=== PATIENT | female | born 1965 | race Caucasian/White ===

== ENCOUNTER 2022-10-05 06:23 | Inpatient (IN) | payer MEDICAID ==
[2022-10-03 14:27] LABS: Basophils # (auto) 0.1 10 ^3/uL (0-0.2); Basophils % (auto) 0.9 % (0.0-2.0); Eosinophils # (auto) 0.3 10 ^3/uL (0-0.8); Eosinophils % (auto) 3.2 % (0.0-7.0); Hematocrit 45.4 % (36.0-46.0); Hemoglobin 15.2 g/dL (12.2-16.2); Lymphocytes # (auto) 3.4 10 ^3/uL (0.4-5.4); Lymphocytes % (auto) 34.3 % (10.0-50.0); Mean Corpuscular Hemoglobin 30.7 pg (28.0-32.0); Mean Corpuscular Hgb Conc. 33.4 g/dL (32.0-36.0); Mean Corpuscular Volume 91.7 fL (80.0-100.0); Monocytes # (auto) 0.7 10 ^3/uL (0-1.3); Monocytes % (auto) 7.5 % (0.0-12.0); Neutrophils # (auto) 5.3 10 ^3/uL (1.6-8.6); Neutrophils % (auto) 54.1 % (37.0-80.0); Nucleated Red Blood Cells % 0.1 %; Red Blood Cells 4.95 10^6/uL (4.0-5.20); Red Cell Distribution Width 13.4 % (11.8-14.3); White Blood Cell 9.8 10^3/uL (4.4-10.8)
[2022-10-03 14:34] LABS: Urine Bacteria NONE SEEN /hpf (None Seen); Urine Blood Negative /uL (Negative); Urine Mucus FEW (None Seen); Urine Specific Gravity 1.018 (1.001-1.035); Urine WBC 2 /hpf (0 - 5)
[2022-10-03 14:45] LABS: INR 0.95 (0.9-1.15); Partial Thromboplastin Time 28.3 sec (24.6-33.4)
[2022-10-03 15:02] LABS: Albumin 3.9 g/dL (3.4-5.0); Calcium 8.5 mg/dL (8.5-10.1); Potassium 4.3 mmol/L (3.5-5.1)
[2022-10-03 15:05] LABS: Bilirubin, Total 0.4 mg/dL (0.2-1.0); Total Protein 7.1 g/dL (6.4-8.2)
[~2022-10-05] VITALS: Ht 175.3 cm; Wt 118.0 kg
[~2022-10-05 06:23] MED LIST: ASCO500T11 PO; CALC1TAB92 PO; CARB25TA79 PO; CITA10TA8 PO; FURO20TA3 PO; GABA-339 PO; LISI20TA56 PO; ROPI2TAB6 PO
[2022-10-05] MEDS ORDERED: ceFAZolin 1GM/50ML 100 ML IV ONE (06:38)
[2022-10-05] MEDS ORDERED: EPINEPHrine HCL 1 MG/1 ML AMP ONE (06:55)
[2022-10-05] MEDS ORDERED: DexAMETHasone SOD PHOS 4 MG/1ML SDV INJ ONE (06:55)
[2022-10-05] MEDS ORDERED: BUPIVACAINE 0.25% INJ 50ML VIAL ONE (06:55)
[2022-10-05] MEDS ORDERED: ONDANSETRON HCL 4 MG/2 ML VIAL ONE (06:56)
[2022-10-05] MEDS ORDERED: LIDOCAINE 2% (LOCAL ANESTH.) PF 5ml SDV ONE (06:56)
[2022-10-05] MEDS ORDERED: KETOROLAC TROMETH 30 MG/ML 1ML VIAL ONE (06:56)
[2022-10-05] MEDS ORDERED: PROPOFOL 10 MG/ML 20 ML IV ONE ×6 (06:56→09:20)
[2022-10-05] MEDS ORDERED: DexAMETHasone SOD PHOS 10MG/1ML VIAL INJ ONE (06:56)
[2022-10-05] MEDS ORDERED: GLYCOPYRROLATE 0.2 MG/ML 1ML VIAL ONE (06:56)
[2022-10-05] MEDS ORDERED: LIDOCAINE 1% HCL (LOCAL ANESTH.) INJ 20ML MDV ONE (07:24)
[2022-10-05] MEDS ORDERED: BUPIVACAINE HCL 50 ML ONE (07:24)
[2022-10-05] MEDS ORDERED: ESMOLOL HCL 10 ML IV ONE (09:06)
[2022-10-05] MEDS ORDERED: HYDR-4902 PO (09:47)
[2022-10-05] MEDS ORDERED: AUG875T PO (09:47)
[2022-10-05] MEDS ORDERED: MORPHINE SULFATE INJ 2 MG/ml SYRG IV PRN (10:30)
[2022-10-05] MEDS ORDERED: NITROGLYCERIN 0.4 MG SL TAB SL PRN (10:30)
[2022-10-05] MEDS ORDERED: HYDROcodone-ACET 5/325MG TAB PO PRN (11:30)
[2022-10-05 16:12] VITALS: BP 128/69
[2022-10-05] MEDS: ceFAZolin 2 GM/D5W100ml 100 ML IV SCH ×2 (17:12→22:49)
[2022-10-05 22:00] VITALS: BP 117/66
[2022-10-05] MEDS: GABAPENTIN 300 MG CAP PO SCH (22:48)
[2022-10-05] MEDS: CARBIDOPA W LEVODOPA 25/100mg TABLET PO SCH (22:49)
[2022-10-06] MEDS: CARBIDOPA W LEVODOPA 25/100mg TABLET PO SCH (05:47)
[2022-10-06] MEDS: ceFAZolin 2 GM/D5W100ml 100 ML IV SCH (05:47)
[2022-10-06] MEDS: GABAPENTIN 300 MG CAP PO SCH (05:48)
[2022-10-06 06:49] LABS: Basophils # (auto) 0.1 10 ^3/uL (0-0.2); Basophils % (auto) 0.5 % (0.0-2.0); Eosinophils # (auto) 0 10 ^3/uL (0-0.8); Eosinophils % (auto) 0.2 % (0.0-7.0); Hematocrit 38.8 % (36.0-46.0); Hemoglobin 12.7 g/dL (12.2-16.2); Lymphocytes # (auto) 1.8 10 ^3/uL (0.4-5.4); Lymphocytes % (auto) 17.2 % (10.0-50.0); Mean Corpuscular Hemoglobin 30.9 pg (28.0-32.0); Mean Corpuscular Hgb Conc. 32.7 g/dL (32.0-36.0); Mean Corpuscular Volume 94.3 fL (80.0-100.0); Monocytes # (auto) 0.6 10 ^3/uL (0-1.3); Monocytes % (auto) 5.3 % (0.0-12.0); Neutrophils # (auto) 8.2 10 ^3/uL (1.6-8.6); Neutrophils % (auto) 76.8 % (37.0-80.0); Red Blood Cells 4.12 10^6/uL (4.0-5.20); Red Cell Distribution Width 13.6 % (11.8-14.3); White Blood Cell 10.7 10^3/uL (4.4-10.8)
[2022-10-06 09:00] VITALS: BP 127/66
[2022-10-06] MEDS ORDERED: LISINOPRIL 10 MG TAB PO SCH (10:00)
[2022-10-06] MEDS ORDERED: CITALOPRAM HYDROBR 20 MG TAB PO SCH (10:00)
[2022-10-06 12:03] LABS: BUN/Creatinine Ratio 25.5 (10.0-20.0); Calcium 8.5 mg/dL (8.5-10.1); Potassium 4.2 mmol/L (3.5-5.1)
[2022-10-06 12:46] VITALS: BP 132/72
[2022-10-06 15:19] VITALS: BP 127/66
== END 2022-10-06 16:00 | disposition home or self-care (01) | DRG 317 ==
LOC: SUR 06:23 → OVERFLOW 10:26 → WEST WING 13:39
PROVIDERS: ADMIT Student in an Organized Health Care Education/Training Program; ATTEND Internal Medicine
PROC: 0LST0ZZ Reposition Left Ankle Tendon, Open Approach (ICD-10-PCS; 2022-10-05)
PROC: 0MQR0ZZ Repair Left Ankle Bursa and Ligament, Open Approach (ICD-10-PCS; principal; 2022-10-05 07:31)
DX: S93.492A Sprain of other ligament of left ankle, initial encounter (principal); E66.9 Obesity, unspecified; M76.72 Peroneal tendinitis, left leg; F32.A Depression, unspecified; G25.81 Restless legs syndrome; I10 Essential (primary) hypertension; M25.372 Other instability, left ankle; G62.9 Polyneuropathy, unspecified; W18.39XA Other fall on same level, initial encounter; Y93.89 Activity, other specified; Z72.0 Tobacco use; Z71.6 Tobacco abuse counseling; Z68.38 Body mass index [BMI] 38.0-38.9, adult; Y99.8 Other external cause status; Y92.89 Other specified places as the place of occurrence of the external cause
CPT/HCPCS: 36415; 73600; 76000; 80048; 80053; 81001; 85025; 85610; 85730; 87070; 87075; 87205; G0378; J0171; J0690; J1100; J1885; J2001; J2405; J2704; J3490